=== PATIENT | female | born 1995 ===

== ENCOUNTER 2023-02-27 15:22 | Outpatient (CLI) | payer OTHER | END 2023-02-27 16:32 | disposition home or self-care (01) | LOC: PRENATAL 15:22 | PROVIDERS: ATTEND Obstetrics & Gynecology Maternal & Fetal Medicine | DX: O35.3XX0 Maternal care for (suspected) damage to fetus from viral disease in mother, not applicable or unspecified (principal); O44.00 Complete placenta previa NOS or without hemorrhage, unspecified trimester; Z3A.20 20 weeks gestation of pregnancy ==

== ENCOUNTER 2023-05-25 16:59 | Outpatient (CLI) | payer OTHER ==
[2023-05-25] MEDS ORDERED: PRENATAL TABLE1 EAC1 (17:07)
[2023-05-25 17:28] LABS: HEMATOCRIT 32.6 % (36.0-45.00); HEMOGLOBIN 11.4 g/dL (12.0-15.00); MEAN CELL VOLUME 94.3 fL (80.00-100.00); MEAN CORPUSCULAR HEMOGLOBIN 32.9 pg (27.00-32.0); PLATELET COUNT 197 K/uL (150-450); RED BLOOD COUNT 3.46 M/uL (4.00-6.00); RED CELL DISTRIBUTION WIDTH 13.5 % (11.5-14.5)
[2023-05-25 17:28] LABS: PH,URINE 6.5 (5.0-8.0); URINE APPEARANCE Cloudy; URINE BILIRRUBIN Negative (NEGATIVE); URINE BLOOD Negative; URINE COLOR Yellow; URINE GLUCOSE Negative (NEGATIVE); URINE LEUKOCYTE Small; URINE NITRATE Negative; URINE PROTEIN Negative (NEGATIVE)
[2023-05-25 17:31] LABS: URINE WBC 122.6 uL (0.0-23.2)
[2023-05-25 18:19] LABS: URINE RBC 1.1 uL (0.0-20.8)
== END 2023-05-26 10:08 | disposition home or self-care (01) ==
LOC: OBS/DEL 16:59
PROVIDERS: ATTEND Obstetrics & Gynecology
DX: O23.33 Infections of other parts of urinary tract in pregnancy, third trimester (principal); N39.0 Urinary tract infection, site not specified; Z3A.33 33 weeks gestation of pregnancy

== ENCOUNTER 2023-07-05 10:45 | Inpatient (IN) | payer OTHER ==
[~2023-07-05] VITALS: Ht 149.9 cm; Wt 63.5 kg
[~2023-07-05 10:45] MED LIST: PRENATAL TABLE1 EAC1
[2023-07-05 11:38] LABS: PH,URINE 6.5 (5.0-8.0); URINE APPEARANCE Clear; URINE BILIRRUBIN Negative (NEGATIVE); URINE BLOOD Negative; URINE COLOR Dark Yellow; URINE GLUCOSE Negative (NEGATIVE); URINE LEUKOCYTE Negative; URINE NITRATE Negative; URINE PROTEIN Negative (NEGATIVE)
[2023-07-05 11:39] LABS: URINE BACTERIA 86.9 uL (0.0-1933); URINE EPITHELIAL CELLS 18.2 uL (0.0-38.8); URINE RBC 3.7 uL (0.0-20.8); URINE WBC 6.1 uL (0.0-23.2)
[2023-07-05 11:43] LABS: HEMATOCRIT 38.7 % (36.0-45.00); HEMOGLOBIN 13.2 g/dL (12.0-15.00); MEAN CELL VOLUME 95.3 fL (80.00-100.00); MEAN CORPUSCULAR HEMOGLOBIN 32.6 pg (27.00-32.0); MEAN CORPUSCULAR HGB CONC 34.2 g/dl (32.0-36.0); PLATELET COUNT 200 K/uL (150-450); RED BLOOD COUNT 4.06 M/uL (4.00-6.00)
[2023-07-05 12:04] LABS: CALCIUM 9.2 mg/dL (8.5-10.1); CREATININE SERUM 0.46 mg/dL (0.55-1.02); GFR 162.95; POTASSIUM 4.01 mEq/L (3.5-5.1)
[2023-07-06 03:11] LABS: HEMATOCRIT 35.6 % (36.0-45.00); MEAN CELL VOLUME 95.2 fL (80.00-100.00); MEAN CORPUSCULAR HEMOGLOBIN 32.1 pg (27.00-32.0); MEAN CORPUSCULAR HGB CONC 33.7 g/dl (32.0-36.0); PLATELET COUNT 196 K/uL (150-450); RED BLOOD COUNT 3.74 M/uL (4.00-6.00); RED CELL DISTRIBUTION WIDTH 13.9 % (11.5-14.5)
[2023-07-06 03:28] LABS: INR < 0.93; PARTIAL THROMBOPLASTIN TIME 25.7 SECONDS (22.0-34.0); PROTHROMBIN TIME 9.8 SECONDS (9.0-11.5)
[2023-07-06 03:29] LABS: CALCIUM 8.6 mg/dL (8.5-10.1); CREATININE SERUM 0.52 mg/dL (0.55-1.02); GFR 141.45; POTASSIUM 3.92 mEq/L (3.5-5.1)
[2023-07-06 06:44] LABS: PH,URINE 7.5 (5.0-8.0); URINE APPEARANCE Clear; URINE BILIRRUBIN Negative (NEGATIVE); URINE BLOOD Negative; URINE COLOR Yellow; URINE GLUCOSE Negative (NEGATIVE); URINE LEUKOCYTE Trace; URINE NITRATE Negative
[2023-07-06 06:48] LABS: URINE BACTERIA 1181.7 uL (0.0-1933); URINE EPITHELIAL CELLS 26.1 uL (0.0-38.8); URINE RBC 8.7 uL (0.0-20.8); URINE WBC 10.9 uL (0.0-23.2)
[2023-07-06 06:54] LABS: URINE PROTEIN 100 (NEGATIVE)
[2023-07-06 21:31] LABS: ABG PH 7.264 (7.35-7.45); ABG PO2 19.2 mmHg (80-100); ABG pCO2 46.7 mmHg (35-45); BASE EXCESS -6.4 mmol/l; BICARBONATE 20.7 mmol/l (23-25); SaO2 21.6 %; Tco2 22.1 mmol/l; o2 21 %
[2023-07-07 02:30] LABS: HEMATOCRIT 34.5 % (36.0-45.00); HEMOGLOBIN 11.5 g/dL (12.0-15.00); MEAN CELL VOLUME 94.3 fL (80.00-100.00); MEAN CORPUSCULAR HEMOGLOBIN 31.5 pg (27.00-32.0); MEAN CORPUSCULAR HGB CONC 33.4 g/dl (32.0-36.0); PLATELET COUNT 193 K/uL (150-450); RED BLOOD COUNT 3.66 M/uL (4.00-6.00); RED CELL DISTRIBUTION WIDTH 14.4 % (11.5-14.5)
== END 2023-07-09 12:42 | disposition home or self-care (01) | DRG 788 ==
LOC: OBS/DEL 10:45 → OB/GYN 07-06 02:22 → LDR 07-06 02:22 → O/R 07-06 20:40 → OB/GYN 07-06 20:48
PROVIDERS: ADMIT Obstetrics & Gynecology; ATTEND Obstetrics & Gynecology
PROC: 4A1HXCZ Monitoring of Products of Conception, Cardiac Rate, External Approach (ICD-10-PCS; 2023-07-06)
PROC: 3E033VJ Introduction of Other Hormone into Peripheral Vein, Percutaneous Approach (ICD-10-PCS; 2023-07-06)
PROC: 3E0P7VZ Introduction of Hormone into Female Reproductive, Via Natural or Artificial Opening (ICD-10-PCS; 2023-07-06)
PROC: 10D00Z1 Extraction of Products of Conception, Low, Open Approach (ICD-10-PCS; principal; 2023-07-06 18:00)
DX: O62.1 Secondary uterine inertia (principal); O36.8130 Decreased fetal movements, third trimester, not applicable or unspecified; O82 Encounter for cesarean delivery without indication; Z3A.38 38 weeks gestation of pregnancy; Z37.0 Single live birth; Z20.822 Contact with and (suspected) exposure to COVID-19